=== PATIENT | female | born 1990 | race African-American/Black ===

== ENCOUNTER 2018-04-20 19:48 | Emergency (ER) | payer MEDICAID ==
[~2018-04-20] VITALS: Ht 157.5 cm; Wt 88.0 kg
[2018-04-20] MEDS ORDERED: LIDOCAINE HCL/PF 1% 10 MG/ML 5ML VIAL IJ ONE (22:30)
[2018-04-20] MEDS ORDERED: BACITRACIN ZINC OINT UDPKT TOP ONE (22:30)
[2018-04-20] MEDS ORDERED: IBUPROFEN 600MG TABLET PO ONE (22:30)
[2018-04-21 00:11] VITALS: BP 124/86
== END 2018-04-21 00:13 | disposition home or self-care (01) ==
LOC: ER 19:48
DX: S61.216A Laceration without foreign body of right little finger without damage to nail, initial encounter (principal); F17.200 Nicotine dependence, unspecified, uncomplicated; W26.0XXA Contact with knife, initial encounter; Y93.89 Activity, other specified; Y92.89 Other specified places as the place of occurrence of the external cause; Y99.8 Other external cause status
CPT/HCPCS: 12001; 73140; 81025; 99284; J3490; Z7610